=== PATIENT | male | born 1965 | race Caucasian/White ===

== ENCOUNTER 2019-05-05 12:34 | Emergency (ER) | payer MEDICARE, MEDICAID | END 2019-05-05 13:52 | disposition home or self-care (01) | LOC: NAV ERS 12:34 | DX: J20.9 Acute bronchitis, unspecified (principal); E78.5 Hyperlipidemia, unspecified; E78.00 Pure hypercholesterolemia, unspecified; K21.9 Gastro-esophageal reflux disease without esophagitis; M10.9 Gout, unspecified; F32.9 Major depressive disorder, single episode, unspecified; F17.210 Nicotine dependence, cigarettes, uncomplicated; Z79.899 Other long term (current) drug therapy | CPT/HCPCS: 99283 ==

== ENCOUNTER 2019-11-06 21:11 | Emergency (ER) | payer MEDICARE, MEDICAID ==
[2019-11-06] MEDS ORDERED: Lidocaine 1% w/Epinephrine 1:100K 30 ML VIAL ONE (21:45)
== END 2019-11-06 22:18 | disposition home or self-care (01) ==
LOC: NAV ERS 21:11
DX: L02.211 Cutaneous abscess of abdominal wall (principal); E78.5 Hyperlipidemia, unspecified; E78.00 Pure hypercholesterolemia, unspecified; F17.210 Nicotine dependence, cigarettes, uncomplicated; M10.9 Gout, unspecified; Z79.899 Other long term (current) drug therapy
CPT/HCPCS: 10060; J2001